=== PATIENT | male | born 1985 | race Two or more races ===

== ENCOUNTER 2018-06-13 07:29 | Emergency (ER) | payer OTHER ==
[~2018-06-13] VITALS: Ht 170.2 cm; Wt 81.6 kg
[2018-06-13 07:32] VITALS: BP 141/93; PULSE 72; RESP 18; Ht 170.2 cm; Wt 81.6 kg
--- NOTE | 2018-06-13 08:30 | ERD ---
ER Documentation Chief Complaint Chief Complaint dark discoloration to face x 5 years HPI 33-year-old male with a history of leukemia presents ED with complaints of skin discoloration to face over the past 5 years. Patient states that over the past 5 years the skin on his face has been darkening. Patient has been seen by gasateria attendant and given a cream but it has not helped. Patient denies any pain, swelling, redness, fever, chills and all other symptoms ROS All systems reviewed and are negative except as per history of present illness. Allergies Allergies: Coded Allergies: No Known Allergy (Unverified , 06/13/18) PMhx/Soc Medical and Surgical Hx: pt denies Surgical Hx Hx Miscellaneous Medical Probl: Yes (LEUKEMIA) Hx Alcohol Use: No Hx Substance Use: No Hx Tobacco Use: No Smoking Status: Never smoker Physical Exam Vitals Vital Signs Date Temp Pulse Resp B/P (MAP) Pulse Ox O2 O2 Flow FiO2 Time Delivery Rate 06/13/18 98.0 72 18 141/93 100 07:32 (109) Physical Exam Const: No acute distress Head: Atraumatic Eyes: Normal Conjunctiva ENT: Normal External Ears, Nose and Mouth. Neck: Full range of motion. No meningismus. Resp: Clear to auscultation bilaterally Cardio: Regular rate and rhythm, no murmurs Skin: There is a brown macular discoloration to face resembling melasma Procedures/MDM ER COURSE: The patient was stable throughout ED course. I kept the patient and/or family informed of laboratory and diagnostic imaging results throughout the emergency room course. The patient was promptly evaluated and a treatment plan was devised based on H&P and other data. This plan was discussed with the patient who agreed and had no further questions or concerns prior to discharge. MEDICAL DECISION MAKIN-year-old male presents the ED with complaints of dark skin discoloration to face over the past 5 years. This is likely melasma given presentation and history. Advised patient follow-up with dermatologic specialist to get a bleaching cream or possibly a dermatologic cream sold in the office. At this time there is no dermatologic emergency. Low suspicion for anaphylaxis, scabies, STS, TEN, Lyme's disease, syphilis, [place] spotted fever, carney gles, disseminated gonorrhea chlamydia, DIC, TTP, ITP, sepsis, necrotizing fasciitis, gangrene, or other emergent condition. Patient's vitals are stable and can be managed with outpatient close follow-up. Advised patient to follow- up with her primary care in the next 48 hours. Advised patient return to ED with any worsening symptoms. DISPOSITION PLAN: We discussed follow up with the patient's primary care doctor within 24 to 48 hours. Patient counseled regarding my diagnostic impression and care plan. Prior to discharge all questions answered. Pt agrees with treatment plan and understands strict return precautions. Precautionary instructions provided including instructions to return to the ER if not improving or for any worsening or changing symptoms or concerns. ExitCare instructions provided. Prior to discharge, patients vital signs have been reviewed SPECIALIST FOLLOW UP RECOMMENDED: None Patient has been advised to follow up with primary care in 1-2 days. Disclaimer: Inadvertent spelling and grammatical errors are likely due to EHR/dictation software use and do not reflect on the overall quality of patient care. Also, please note that the electronic time recorded on this note does not necessarily reflect the actual time of the patient encounter. Departure Diagnosis: Primary Impression: Skin disorder Condition: Stable Referrals: JOSEPH LOU MD,RUDY ODEN,DIANNA JOHNSON,YAA HANKINS,RAMIREZ ROGERS,ANTONIA BARGER,ANTONIA Montes De Oca [facility] YOU HAVE RECEIVED A MEDICAL SCREENING EXAM AND THE RESULTS INDICATE THAT YOU DO NOT HAVE A CONDITION THAT REQUIRES URGENT TREATMENT IN THE EMERGENCY DEPARTMENT. FURTHER EVALUATION AND TREATMENT OF YOUR CONDITION CAN WAIT UNTIL YOU ARE SEEN IN YOUR DOCTORS OFFICE WITHIN THE NEXT 1-2 DAYS. IT IS YOUR RESPONSIBILITY TO MAKE AN APPOINTMENT FOR FOLOW-UP CARE. IF YOU HAVE A PRIMARY DOCTOR --you should call your primary doctor and schedule an appointment IF YOU DO NOT HAVE A PRIMARY DOCTOR YOU CAN CALL OUR PHYSICIAN REFERRAL HOTLINE AT IF YOU CAN NOT AFFORD TO SEE A PHYSICIAN YOU CAN CHOSE FROM THE FOLLOWING [facility] [address] [facility] [address] [facility] [address] [facility] [address] [facility] [address] [facility]. [facility] [address] Additional Instructions: This is likely melasma. Patient was advised to follow-up with dermatologic specialist to get a prescription for bleaching cream. Or possibly get in dermatologic cream from the dermatology office Patient advised to return to the ED immediately for new or worsening symptoms. Patient advised to follow up with primary care provider in the next 24-48 hours. Patient verbalized understanding and agrees with treatment plan and course of action. If patient has no primary care they may follow up with one of the [facility] clinics listed on the following page or one of the options listed below [facility] [address] [place] [id number] or [facility] [address] [place] [address] or [facility] [address] [place] [address] AUBREY CONTRERAS PA-C Jun 13, 2018 08:30
== END 2018-06-13 08:29 | disposition home or self-care (01) ==
LOC: FTE 07:29
DX: L98.9 Disorder of the skin and subcutaneous tissue, unspecified (principal)
CPT/HCPCS: 99282

== ENCOUNTER 2018-08-30 04:37 | Emergency (ER) | payer OTHER ==
[~2018-08-30] VITALS: Ht 170.2 cm; Wt 83.5 kg
[2018-08-30 04:40] VITALS: BP 160/92; PULSE 93; RESP 20; Ht 170.2 cm; Wt 83.5 kg
--- NOTE | 2018-08-30 05:07 | ERD ---
ER Documentation Chief Complaint Chief Complaint RIGHT CHEEK PAIN/SWELLING X YESTERDAY HPI 33-year-old male, presents to the emergency department, complaining of right facial edema and tenderness that started yesterday. The patient denies fevers, no chills, no shortness of breath, no sore throat ROS All systems reviewed and are negative except as per history of present illness. Medications Home Meds Active Scripts Ibuprofen* (Motrin*) 600 Mg Tab, 600 MG PO Q8, #20 TAB Prov:DC ST MD 08/30/18 Amoxicillin* (Amoxicillin*) 500 Mg Cap, 2 CAP PO TID for 7 Days, CAP Prov:DC ST MD 08/30/18 Allergies Allergies: Coded Allergies: No Known Allergy (Unverified , 06/13/18) PMhx/Soc Medical and Surgical Hx: pt denies Medical Hx, pt denies Surgical Hx Hx Miscellaneous Medical Probl: Yes (LEUKEMIA) Hx Alcohol Use: No Hx Substance Use: No Hx Tobacco Use: No FmHx Family History: No diabetes, No coronary disease Physical Exam Vitals Vital Signs Date Temp Pulse Resp B/P (MAP) Pulse Ox O2 O2 Flow FiO2 Time Delivery Rate 08/30/18 99.4 93 20 160/92 100 04:40 (114) Physical Exam Patient alert, oriented, vital signs stable. HEENT: Normocephalic, atraumatic, significant right parotid gland edema and tenderness but no erythema or fluctuance.. EYES: PERRLA, EOMI, Sclera and conjunctiva appear normal. EARS: Canals clear, tympanic membranes WNL. THROAT: Erythematous oropharynx. NECK: Supple, No lymphadenopathy. Full ROM without pain or tenderness. HEART: RRR, no rubs, murmurs, clicks or gallops. LUNGS: Clear to auscultation. ABDOMEN: Soft, non-tender without masses or hepatosplenomegaly. EXTREMITIES: No edema bilaterally. BACK: Full ROM, no deformity, normal back exam NEURO: Cranial nerves grossly intact, no motor or sensory deficit SKIN: No rashes, no petechia. Results 24 hrs Current Medications Medications Dose Sig/Edwar Start Time Status Last (Trade) Ordered Route PRN Stop Time Admin Dose Reason Admin Ibuprofen 600 mg ONCE ONCE 08/30/18 DC 3/27/19 (Motrin) PO 05:30 05:22 08/30/18 05:31 Amoxicillin 1,000 mg ONCE ONCE 08/30/18 DC 08/30/18 PO 05:30 05:26 (Amoxicillin) 08/30/18 05:31 Procedures/MDM Differential diagnosis include but not limited to: Tonsillar/pharyngeal infection bacterial/viral/fungal, parotitis, allergies, GERD. Less likely peritonsillar abscess, retropharyngeal abscess. No signs of upper respiratory obstruction Physical examination and clinical presentation consistent most likely with acute right parotitis. During the ED course the patient remained stable. Clinical impression discussed with the patient who agrees with management. The patient is stable to be treated outpatient and will be discharged home with a Rx for antibiotic and ibuprofen. Some side effects of prescribed medications (headache, rash, nausea, vomiting, diarrhea, drowsiness, habituation, bleeding, hypertension, interactions with other medications) were reviewed. The patient was instructed to follow up with the primary care provider in the next 48h. If symptoms persist, worsen or new symptoms develop, then patient should return to the ED immediately. Disclaimer: Inadvertent spelling and grammatical errors are likely due to EHR/dictation software use and do not reflect on the overall quality of patient care. Also, please note that the electronic time recorded on this note does not necessarily reflect the actual time of the patient encounter. Departure Diagnosis: Primary Impression: Parotitis, acute Condition: Stable Additional Instructions: Thank you very much for allowing us to participate in your care. Your health and safety is our top priority at [facility]. Call your primary care doctor TOMORROW for an appointment during the next 2-4 days and bring all the information and medications prescribed. Have prescriptions filled and follow precisely the directions on the label. If the symptoms get worse and your provider is unavailable, return to the Emergency Department immediately. DC ST MD Aug 30, 2018 05:07
[2018-08-30] MEDS ORDERED: AMOXICILLIN 500 MG CAP PO ONE (05:30)
[2018-08-30] MEDS ORDERED: IBUPROFEN 600 MG TAB PO ONE (05:30)
[2018-08-30] MEDS ORDERED: AMOX500C2 PO (05:34)
[2018-08-30] MEDS ORDERED: IBUP-1542 PO (05:34)
== END 2018-08-30 05:47 | disposition home or self-care (01) ==
LOC: FTE 04:37
DX: K11.21 Acute sialoadenitis (principal); Z85.6 Personal history of leukemia
CPT/HCPCS: Z7502; Z7610; 99283

== ENCOUNTER 2018-09-06 08:34 | Emergency (ER) | payer OTHER ==
[~2018-09-06] VITALS: Ht 170.2 cm; Wt 81.0 kg
[~2018-09-06 08:34] MED LIST: AMOX500C2 PO; IBUP-1542 PO
[2018-09-06 08:38] VITALS: BP 141/82; PULSE 75; RESP 19; Ht 170.2 cm; Wt 81.0 kg
[2018-09-06] MEDS ORDERED: TETRACAINE 0.5% 4 ML OPH RIGHT EYE ONE (09:00)
[2018-09-06] MEDS ORDERED: FLUORESCEIN STRIP RIGHT EYE ONE (09:00)
--- NOTE | 2018-09-06 09:26 | ERD ---
ER Documentation Chief Complaint Chief Complaint LEFT EYE REDNESS/PAIN HPI 33-year-old with history of leukemia, now in remission presents to the ED with complaints of sudden onset right eye redness since this morning. Patient states he was started on a recent steroid cream for his facial melasma by his primary care physician yesterday. He states he believes he may have accidentally rubbed the cream near his eye. He woke up this morning with a subconjunctival hemorrhage. Denies any pain, itchiness, changes in vision, discharge. Denies any trauma. Denies any headache chest pain or any other symptoms. ROS All systems reviewed and are negative except as per history of present illness. Medications Home Meds Active Scripts Ibuprofen* (Motrin*) 600 Mg Tab, 600 MG PO Q8, #20 TAB Prov:DC ST MD 08/30/18 Amoxicillin* (Amoxicillin*) 500 Mg Cap, 2 CAP PO TID for 7 Days, CAP Prov:DC ST MD 08/30/18 Allergies Allergies: Coded Allergies: No Known Allergy (Unverified , 06/13/18) PMhx/Soc Hx Miscellaneous Medical Probl: Yes (LEUKEMIA) Hx Alcohol Use: No Hx Substance Use: No Hx Tobacco Use: No Physical Exam Vitals Vital Signs Date Temp Pulse Resp B/P (MAP) Pulse Ox O2 O2 Flow FiO2 Time Delivery Rate 09/06/18 97.9 75 19 141/82 100 08:38 (101) Physical Exam Const: No acute distress Head: Atraumatic Eye Exam w/ slit lamp: Visual Acuity: OS 20/30, OD 20/50, OU 20/30 Visual Mckeon: Intact in all four quadrants bilaterally Lac ducts/glands: No swelling Lids w/ evertion: Normal, no foreign body Conj/Orange: + Small right some conjunctival hemorrhage to the lateral aspect. Negative Fluorescein/Eli's ENT: Normal External Ears, Nose and Mouth. Neck: Full range of motion. No meningismus. Skin: + Patchy areas of brown discoloration/hyperpigmentation along cheeks and forehead consistent with melasma Neur: Awake and alert Psych: Normal Mood and Affect Results 24 hrs Current Medications Medications Dose Sig/Edwar Start Time Status Last (Trade) Ordered Route PRN Stop Time Admin Dose Reason Admin Tetracaine 1 drop ONCE ONCE 09/06/18 DC HCl RIGHT EYE 09:00 09/06/18 (Tetracaine 09:01 0.5% Steri-Unit Deanna) Fluorescein 1 strip ONCE ONCE 09/06/18 DC Sodium RIGHT EYE 09:00 09/06/18 (Hnlwg-X-Dvte 09:01 p) Procedures/MDM ED Course: Fluorescein staining as above negative for any corneal abrasion or ulceration MDM: 33 yo M with hx of leukemia presents with atraumatic subconjunctival hemorrhage. Vital signs are stable here. No signs of hypertensive emergency/urgency. Fluorescein staining as above within normal limits therefore no need for antibiotics at this time. No evidence of ruptured globe, retinal detachment, acute angle closure glaucoma, or deep space infection. Pt is stable for outpatient management. Recommend 24 hour ophthalmology and oncology follow up. Strict return precautions discussed. Blood Pressure Assessment: Patient's blood pressure was elevated (>120/80) but appears stable without evidence of hypertension emergency or urgency. The patient was counseled about the risks of hypertension and urged to pursue outpatient monitoring and therapy within a week with their primary care physician. Departure Diagnosis: Primary Impression: Subconjunctival hemorrhage, non-traumatic Laterality: right Qualified Codes: H11.31 - Conjunctival hemorrhage, right eye Condition: Stable Patient Instructions: Subconjunctival Hemorrhage Referrals: [facility] Hours: Mon - Tue 9:00 AM - 5:00 PM Additional Instructions: Follow-up with your regular doctor and furnace utility operator in 2 days for follow-up. Did not need any antibiotics at this time as there is no infection or scratch visualized on your eye. Symptoms should start to clear after about 24 hours. Return for any new or worsening symptoms. MARINA EVANS PA-C Sep 06, 2018 09:26
== END 2018-09-06 09:25 | disposition home or self-care (01) ==
LOC: FTE 08:34
DX: H11.31 Conjunctival hemorrhage, right eye (principal); C95.91 Leukemia, unspecified, in remission
CPT/HCPCS: 99283

== ENCOUNTER 2018-09-09 21:55 | Emergency (ER) | payer OTHER ==
[~2018-09-09] VITALS: Ht 170.2 cm; Wt 82.5 kg
[2018-09-09 22:05] VITALS: BP 150/90; PULSE 74; RESP 18; Ht 170.2 cm; Wt 82.5 kg
--- NOTE | 2018-09-10 01:29 | ERD ---
ER Documentation Chief Complaint Chief Complaint right eye redness x 5 days, was here 5 days ago for same HPI This is a 33-year-old male with history of leukemia in remission, presents to [facility] ED for the second time this week for same complaints of right eye redness. Patient's was initially seen here, where forcing staining was done and negative for any abrasion. He returns again today stating that his subconjunctival hemorrhage has progressed. He denies any changes in vision, eye pain, eye discharge, eye trauma, or any other symptoms. ROS All systems reviewed and are negative except as per history of present illness. Medications Home Meds Active Scripts Ibuprofen* (Motrin*) 600 Mg Tab, 600 MG PO Q8, #20 TAB Prov:DC ST MD 08/30/18 Amoxicillin* (Amoxicillin*) 500 Mg Cap, 2 CAP PO TID for 7 Days, CAP Prov:DC ST MD 08/30/18 Allergies Allergies: Coded Allergies: No Known Allergy (Unverified , 06/13/18) PMhx/Soc Medical and Surgical Hx: pt denies Surgical Hx Hx Miscellaneous Medical Probl: Yes (LEUKEMIA) Hx Alcohol Use: No Hx Substance Use: No Hx Tobacco Use: No Smoking Status: Never smoker Physical Exam Vitals Vital Signs Date Temp Pulse Resp B/P (MAP) Pulse Ox O2 O2 Flow FiO2 Time Delivery Rate 09/09/18 98.2 74 18 150/90 100 22:05 (110) Physical Exam Const: No acute distress Head: Atraumatic Eyes: + Subconjunctival hemorrhage of the right eye. No hyphema. Normal corneal abrasion seen. ENT: Normal External Ears, Nose and Mouth. Neck: Full range of motion. No meningismus. Skin: No petechiae or rashes Ext: No cyanosis, or edema Neur: Awake and alert Psych: Normal Mood and Affect Procedures/MDM MDM: This is a 33-year-old male presents to the ED with an atraumatic conjunctival hemorrhage of the right eye. He was seen here 5 days ago for same complaints, fluorescein staining at that time was unremarkable. Hemorrhage had progressive patient came here for further evaluation. I reassured patient that his subconjunctival hemorrhage can take a weeks to get better. I provided him with a referral to an director of conservation to follow-up with. He does not need any antibiotics at this time. I discussed this with my supervising physician, Dr. Velázquez who agrees with the plan of care. I have low suspicion for ruptured globe, retinal detachment, acute angle closure glaucoma, or deep space infection. Blood Pressure Assessment: Patient's blood pressure was elevated (>120/80) but appears stable without evidence of hypertension emergency or urgency. The patient was counseled about the risks of hypertension and urged to pursue outpatient monitoring and therapy within a week with their primary care physician. Departure Diagnosis: Primary Impression: Subconjunctival hemorrhage, non-traumatic Laterality: right Qualified Codes: H11.31 - Conjunctival hemorrhage, right eye Condition: Stable Referrals: [facility] (PCP) [facility] Hours: Tue - Tue 9:00 AM - 5:00 PM Additional Instructions: Your eye redness should go away in a few weeks. I do recommend seeing an director of conservation in the next month or so. Return for any changes in vision, painful vision, change blurry vision, or any other symptoms. MARINA EVANS PA-C Sep 10, 2018 01:29
== END 2018-09-10 01:35 | disposition home or self-care (01) ==
LOC: FTE 21:55
DX: H11.31 Conjunctival hemorrhage, right eye (principal); C95.91 Leukemia, unspecified, in remission
CPT/HCPCS: 99282

== ENCOUNTER 2018-11-13 04:55 | Emergency (ER) | payer OTHER ==
[~2018-11-13] VITALS: Ht 170.2 cm; Wt 83.1 kg
[2018-11-13 04:57] VITALS: BP 162/98; PULSE 75; RESP 18; Ht 170.2 cm; Wt 83.1 kg
[2018-11-13] MEDS ORDERED: AMOX1TAB10 PO (05:28)
--- NOTE | 2018-11-13 05:30 | ERD ---
ER Documentation Chief Complaint Chief Complaint base of R jaw hurting x 3 days, just finished ABT x tonsillitis HPI 33-year-old male is here with dental pain and swelling of the right side of his jaw. He states this is been going on for 3 days but he has had this before. He was given prescription for amoxicillin a few months ago but states he never completed it. He has not yet seen a dentist for this. He had no fever. He is tolerating oral intake. ROS All systems reviewed and are negative except as per history of present illness. Medications Home Meds Active Scripts Amoxicillin/Potassium Clav (Amox-Clav 875-125 mg Tablet) 875-125 mg Tab, 1 TAB PO BID for 7 Days, #14 TAB Prov:GAIL BARROW PA-C 11/13/18 Ibuprofen* (Motrin*) 600 Mg Tab, 600 MG PO Q8, #20 TAB Prov:DC ST MD 08/30/18 Amoxicillin* (Amoxicillin*) 500 Mg Cap, 2 CAP PO TID for 7 Days, CAP Prov:DC ST MD 08/30/18 Allergies Allergies: Coded Allergies: No Known Allergy (Unverified , 06/13/18) PMhx/Soc Medical and Surgical Hx: pt denies Medical Hx, pt denies Surgical Hx Hx Miscellaneous Medical Probl: Yes (LEUKEMIA) Hx Alcohol Use: No Hx Substance Use: No Hx Tobacco Use: No Smoking Status: Never smoker FmHx Family History: No diabetes Physical Exam Vitals Vital Signs Date Temp Pulse Resp B/P (MAP) Pulse Ox O2 O2 Flow FiO2 Time Delivery Rate 11/13/18 97.8 75 18 162/98 100 04:57 (119) Physical Exam Const: No acute distress Head: Atraumatic Eyes: Normal Conjunctiva ENT: Poor dentition with multiple dental caries, mild right-sided lower jaw swelling, oropharynx is clear, Neck: Full range of motion. No meningismus. Resp: Clear to auscultation bilaterally Cardio: Regular rate and rhythm, no murmurs Procedures/MDM Patient has dental pain and multiple dental caries with poor dentition throughout. He has not yet followed up with a dentist and he was given outpatient dental follow-up as well as prescription for Augmentin. Patient counseled regarding my diagnostic impression and care plan. Prior to discharge all questions answered. Pt agrees with treatment plan and understands strict return precautions. Pt is instructed to follow up with primary care provider within 24-48 hours. Precautionary instructions provided including instructions to return to the ER if not improving or for any worsening or changing symptoms or concerns. Departure Diagnosis: Primary Impression: Dental implant pain Condition: Stable Patient Instructions: Dental Pain Referrals: [facility] ([facility] walk in [facility]) Additional Instructions: Call your primary care doctor TOMORROW for an appointment during the next 1-2 days.See the doctor sooner or return here if your condition worsens before your appointment time. GAIL BARROW PA-C Nov 13, 2018 05:30
== END 2018-11-13 05:36 | disposition home or self-care (01) ==
LOC: FTE 04:55
DX: K08.89 Other specified disorders of teeth and supporting structures (principal); Z85.6 Personal history of leukemia
CPT/HCPCS: 99283